=== PATIENT | female | born 1930 | race Caucasian/White ===

== ENCOUNTER 2017-05-08 12:54 | Inpatient (IN) | payer MEDICARE, OTHER ==
[~2017-05-08] VITALS: Ht 157.5 cm; Wt 73.0 kg
[2017-05-08 13:36] LABS: BASOPHILS % 0.5 % (0.0-2.0); EOSINOPHILS % 1.5 % (0.0-5.0); HEMATOCRIT. 42.1 % (36.0-48.0); HEMOGLOBIN. 14.8 g/dL (12.0-16.0); LYMPHOCYTES % 11.5 % (20.0-50.0); MEAN CORPUSCULAR HEMOGLOBIN 35.3 pg (28.0-32.0); MEAN CORPUSCULAR VOLUME 100.6 fL (81.0-99.0); MEAN PLATELET VOLUME 8.6 fl (7.4-10.4); MONOCYTES % 9.3 % (2.0-8.0); NEUTROPHILS % 77.2 % (40.0-76.0); PLATELET 142 x1000/uL (130-400); RED BLOOD CELL COUNT 4.18 mill/uL (4.2-5.4); RED CELL DISTRIBUTION WIDTH 13.3 % (11.6-14.6)
[2017-05-08 13:48] LABS: CHLORIDE 104 mEq/L (98-107)
[2017-05-08 13:49] LABS: INR 1.1; PARTIAL THROMBOPLASTIN TIME 26.4 sec (23.4-31.0); PROTHROMBIN TIME 11.8 sec (9.4-11.6)
[2017-05-08 14:57] LABS: CLARITY URINE CLEAR (CLEAR); COLOR URINE YELLOW (YELLOW); KETONES URINE NEGATIVE (NEGATIVE); LEUKOCYTE ESTERASE URINE TRACE (NEGATIVE); NITRITE URINE NEGATIVE (NEGATIVE); OCCULT BLOOD URINE NEGATIVE (NEGATIVE); PROTEIN URINE NEGATIVE (NEGATIVE); SPECIFIC GRAVITY URINE 1.012 (1.005-1.030); UROBILINOGEN URINE 0.2 E.U./dL (0.2-1.0)
[2017-05-08] MEDS ORDERED: CEFTRIAXONE 1 G PREMIX 50 ML IV ONE (15:45)
[2017-05-08 22:00] VITALS: BP 108/60
[2017-05-08 23:00] VITALS: BP 110/60
[2017-05-08] MEDS ORDERED: ONDANSETRON HCL 4MG/2ML VIAL IV PRN (23:15)
[2017-05-08] MEDS ORDERED: OMEP20TA15 PO (23:50)
[2017-05-08] MEDS ORDERED: FURO20TA4 PO (23:50)
[2017-05-08] MEDS ORDERED: TOPXL5 PO (23:50)
[2017-05-08] MEDS ORDERED: SERT-112 PO (23:50)
[2017-05-08] MEDS ORDERED: LISI-604 PO (23:50)
[2017-05-08] MEDS ORDERED: RIVA10TA PO (23:50)
[2017-05-08] MEDS ORDERED: KLUD20 PO (23:55)
[2017-05-08] MEDS ORDERED: LEVO88TA7 PO (23:55)
[2017-05-08] MEDS ORDERED: ATOR40TA70 PO (23:56)
[2017-05-08] MEDS ORDERED: ASCO-316 PO (23:59)
[2017-05-08] MEDS ORDERED: FERR142T6 PO (23:59)
[2017-05-08] MEDS ORDERED: CHOL20004 PO (23:59)
[2017-05-09 01:00] LABS: CREATINE KINASE MB FRACTION 1.4 ng/mL (0.5-3.6)
[2017-05-09] MEDS ORDERED: SODIUM CHLORIDE 0.45% 1,000 ML IV ONE (07:00)
[2017-05-09 07:01] LABS: BASOPHILS % 0.4 % (0.0-2.0); EOSINOPHILS % 1.4 % (0.0-5.0); HEMATOCRIT. 35.9 % (36.0-48.0); HEMOGLOBIN. 12.6 g/dL (12.0-16.0); LYMPHOCYTES % 9.2 % (20.0-50.0); MEAN CORPUSCULAR HEMOGLOBIN 35.4 pg (28.0-32.0); MEAN CORPUSCULAR VOLUME 101.2 fL (81.0-99.0); MEAN PLATELET VOLUME 8.9 fl (7.4-10.4); MONOCYTES % 10.6 % (2.0-8.0); NEUTROPHILS % 78.4 % (40.0-76.0); PLATELET 114 x1000/uL (130-400); RED BLOOD CELL COUNT 3.54 mill/uL (4.2-5.4)
[2017-05-09 08:00] VITALS: BP 111/57
[2017-05-09] MEDS ORDERED: GENTAMICIN/NS IRRIGATION 500 ML IR ONE (10:00)
[2017-05-09] MEDS ORDERED: LIDOCAINE HCL 1% 20ML VIAL (Pyxis) INJ ONE (10:04)
[2017-05-09] MEDS ORDERED: ONDANSETRON HCL 4MG/2ML VIAL IV PRN ×2 (10:15→12:15)
[2017-05-09] MEDS ORDERED: ACETAMINOPHEN 650MG SUPP PR PRN (10:15)
[2017-05-09] MEDS ORDERED: FENTANYL CITRATE/PF 50MCG/ML 2ML VIAL ONE (10:38)
[2017-05-09] MEDS ORDERED: PROPOFOL 200MG/20ML VIAL IV ONE (10:38)
[2017-05-09] MEDS ORDERED: MIDAZOLAM HCL 2 MG/2 ML VIAL ONE (10:38)
[2017-05-09] MEDS ORDERED: DEXAMETHASONE 4MG/ML 1ML VIAL ONE (10:38)
[2017-05-09] MEDS ORDERED: ONDANSETRON HCL 4MG/2ML VIAL ONE (10:38)
[2017-05-09] MEDS ORDERED: CEFAZOLIN SODIUM 1000MG/VIAL ONE (10:40)
[2017-05-09] MEDS ORDERED: STERILE WATER FOR INJECTION 10ML VIAL ONE (10:40)
[2017-05-09] MEDS ORDERED: MEPERIDINE HCL/PF 25MG/ML CPJ IV PRN (12:15)
[2017-05-09] MEDS ORDERED: LABETALOL 5MG/ML SYR 20 MG/4 ML SYRINGE IV PRN (12:15)
[2017-05-09] MEDS ORDERED: HYDROMORPHONE HCL/PF 2MG/ML CPJ IV PRN (12:15)
[2017-05-09] MEDS ORDERED: ONDANSETRON 4MG ODT PO PRN (13:45)
[2017-05-09 14:00] VITALS: BP 120/60
[2017-05-09 16:00] VITALS: BP 135/64
[2017-05-09] MEDS: LORAZEPAM 2MG/ML CPJ IV PRN (17:00)
[2017-05-09 18:00] VITALS: BP 91/67
[2017-05-09 20:00] VITALS: BP 89/46
[2017-05-09 22:00] VITALS: BP 116/55
[2017-05-10] VITALS (7 sets, daily range): BP systolic 88–102; BP diastolic 43–59
[2017-05-10] MEDS: LORAZEPAM 2MG/ML CPJ IV PRN (03:06)
[2017-05-10 05:56] LABS: HEMATOCRIT. 32.5 % (36.0-48.0); HEMOGLOBIN. 11.3 g/dL (12.0-16.0); MEAN CORPUSCULAR HEMOGLOBIN 35.7 pg (28.0-32.0); MEAN CORPUSCULAR VOLUME 102.5 fL (81.0-99.0); MEAN PLATELET VOLUME 9.4 fl (7.4-10.4); PLATELET 99 x1000/uL (130-400); RED BLOOD CELL COUNT 3.17 mill/uL (4.2-5.4); RED CELL DISTRIBUTION WIDTH 12.9 % (11.6-14.6)
[2017-05-10 06:38] LABS: PHOSPHORUS 4.4 mg/dL (2.5-4.9); T4 FREE 0.87 ng/dL (0.76-1.46)
[2017-05-10 18:26] LABS: PLATELET ESTIMATE DECREASED
== END 2017-05-10 12:10 | disposition home or self-care (01) | DRG 242 ==
LOC: ER 13:34 → 5WST 14:32 → EDBEDREQ 14:59 → EDBEDREQTM 14:59 → ENRESERV 19:50 → 3WST 05-09 12:35
PROVIDERS: ADMIT Internal Medicine; ATTEND Internal Medicine
PROC: 0JH604Z Insertion of Pacemaker, Single Chamber into Chest Subcutaneous Tissue and Fascia, Open Approach (ICD-10-PCS; 2017-05-09)
PROC: 02PA3MZ Removal of Cardiac Lead from Heart, Percutaneous Approach (ICD-10-PCS; 2017-05-09)
PROC: 0JPT0PZ Removal of Cardiac Rhythm Related Device from Trunk Subcutaneous Tissue and Fascia, Open Approach (ICD-10-PCS; 2017-05-09)
PROC: 02HK3JZ Insertion of Pacemaker Lead into Right Ventricle, Percutaneous Approach (ICD-10-PCS; principal; 2017-05-09 08:00)
DX: T82.120A Displacement of cardiac electrode, initial encounter (principal); I50.43 Acute on chronic combined systolic (congestive) and diastolic (congestive) heart failure; N19 Unspecified kidney failure; F03.90 Unspecified dementia, unspecified severity, without behavioral disturbance, psychotic disturbance, mood disturbance, and anxiety; I48.91 Unspecified atrial fibrillation; I08.3 Combined rheumatic disorders of mitral, aortic and tricuspid valves; R73.9 Hyperglycemia, unspecified; I11.0 Hypertensive heart disease with heart failure; M19.90 Unspecified osteoarthritis, unspecified site; E03.9 Hypothyroidism, unspecified; E78.5 Hyperlipidemia, unspecified; Y83.1 Surgical operation with implant of artificial internal device as the cause of abnormal reaction of the patient, or of later complication, without mention of misadventure at the time of the procedure; Z95.3 Presence of xenogenic heart valve; Z86.73 Personal history of transient ischemic attack (TIA), and cerebral infarction without residual deficits; Y92.89 Other specified places as the place of occurrence of the external cause
CPT/HCPCS: 33207; 33233; 36415; 71045; 71046; 80048; 80053; 80061; 81003; 82550; 82553; 83735; 83880; 84100; 84439; 84443; 84484; 85025; 85610; 85730; 93005; 96365; 99291; A4216; C1786; C1892; C1898; J0690; J0696; J1100; J2060; J2250; J2405; J2704; J3010; J3490; J7040; J7050